=== PATIENT | male | born 1960 | race Hispanic/Latino ===

== ENCOUNTER 2017-08-20 06:19 | Emergency (ER) | payer OTHER | END 2017-08-20 06:58 | LOC: EDBD 06:19 → EDH 06:19 | DX: E11.65 Type 2 diabetes mellitus with hyperglycemia (principal); I10 Essential (primary) hypertension; E11.621 Type 2 diabetes mellitus with foot ulcer; R00.0 Tachycardia, unspecified; Z89.421 Acquired absence of other right toe(s) | CPT/HCPCS: 82948 ==